=== PATIENT | male | born 1995 | race Two or more races ===

== ENCOUNTER 2021-06-04 19:23 | Emergency (ER) | payer SELFPAY ==
[2021-06-04 20:22] VITALS: BP 114/58; PULSE 72; RESP 16; TEMP 36.7; O2SAT 98; BMI 31.4
--- NOTE | 2021-06-04 22:09 | ED.HA ---
HPI - Headache General Chief Complaint: Headache Stated Complaint: headache Time Seen by Provider: 06/04/21 21:01 Source: patient Mode of arrival: ambulatory History of Present Illness HPI Narrative: 25-year-old male with no significant PMHx presenting to the ED complaining of intermittent temporal headache x2 days. Admits headache improves with Motrin at home. States sx began after eating [employer] 2 days ago and getting food poisoning with nausea/ vomiting for 24 hours, which is resolved at present. Denies fever, chills, ear pain, sore throat, vision change/loss, numbness, tingling, weakness, abdominal pain. CORRAL not maximal at onset MD elicited complaint: headache Onset (ago): day(s) Related Data Previous Rx's Medication Instructions Recorded [id number]-[id number]-xvutaavd 1 cap PO Q4-6H PRN #14 cap 06/04/21 50 mg-300 mg-40 mg capsule (Fioricet) Allergies Allergy/AdvReac Type Severity Reaction Status Date / Time No Known Allergies Allergy Verified 06/04/21 22:03 Review of Systems Review of Systems: Constitutional: No Fever, No Chills, No Fatigue, No Malaise ENT/Mouth: No Ear Pain, No Nasal Congestion, No sore throat, No Rhinorrhea Eyes: No Eye Pain, No Swelling, No Redness, No Vision Changes Cardiovascular: No Chest Pain, No SOB Respiratory: No Cough, No Dyspnea Gastrointestinal: + Nausea (resolved), + Vomiting (resolved), No Diarrhea, No Constipation, No Abdominal pain Genitourinary: No Dysuria, No Urinary Incontinence, No Flank Pain Musculoskeletal: No joint pain, No Myalgias Skin: No Skin Lesions, No rash Neuro: No Weakness, No Numbness, No Paresthesias, No Dizziness, +No Headache Yes all other systems are reviewed and are negative Neurologic: Denies Abnormal speech present FOR[facility] Past Medical History Attestation statement: The following information was validated with the patient. Social History Social History Advance Directives: No Advance Directives Information Provided: No Physical Exam Vital Signs: Vital Signs: Last Vital Signs Temp 98.1 F 06/04/21 20: Pulse 72 06/04/21 20:22 Resp 16 06/04/21 20:22 BP 114/58 L 06/04/21 20:22 Pulse Ox 98 06/04/21 20:22 BMI result Body Mass Index 31.4 Const: General: cooperative, healthy appearing, no acute distress and well developed; No acute distress Orientation/consciousness: patient oriented x3 Limitations: no limitations HENMT: Head: Yes normal to inspection and Yes atraumatic Ears: hearing grossly normal bilaterally, external ears normal, TM's normal bilaterally and mastoids normal General nose exam: Normal external nose present Face and sinus: Yes normal facial exam Mouth: Normal oral and palatal mucosa present Throat: Yes posterior oropharynx normal, Yes tonsils normal and Yes uvula midline Eyes: General: appearance normal, both eyes and all related structures Eyelids: Yes eyelids normal Conjunctivae: conjunctivae normal Sclerae: sclerae normal Corneas: corneas normal Pupils: Equal, round and reactive pupils present EOM: EOMs intact bilaterally Direct Ophthalmoscopy: normal light reflex and no photophobia Neck: Neck: Yes normal visual inspection, Yes no lymphadenopathy and Yes no meningeal signs Resp: Effort & Inspection: normal respiratory effort Auscultation: clear to auscultation bilaterally, no crackles, no rales and no rhonchi Cardio: Rate: regular rate Heart sounds: S1 normal heart sound present and S2 normal heart sound present GI: Inspection: Yes normal to inspection Palpation (GI): Soft to palpation, nontender, no guarding and not rigid : General: Yes no CVA tenderness Back/Spine/Pelvis: Back: no CVA tenderness Skin: Rashes: no rashes Wounds: no wounds Neuro: General: patient oriented x3, gait normal, Normal light touch and pain sensation, no meningeal signs, no focal motor deficits and CN's II-XI intact bilaterally Cranial nerves: Yes CN's II-XII intact bilaterally and Yes Equal, round and reactive pupils present Cognition (Neuro): normal cognition Speech: No Abnormal speech present Gait exam (Neuro): Normal gait present Motor exam (neuro): 5/5 motor strength present throughout and Pronator motor function not present Coordination: ojscze-hj-sggq test normal Romberg Test: Negative Extrem: General: Yes normal to inspection Course Course Course Narrative: -[id number]-- patient reports symptomatic improvement after Fioricet Will send script to pharmacy. Is to follow up with PCP MDM - Headache MDM Narrative Medical decision making narrative: 25-year-old male with no significant PMHx presenting to the ED complaining of intermittent temporal headache x2 days. Admits headache improves with Motrin at home. On exam vital signs stable, NAD/nontoxic appearing, no focal neuro deficits, abdomen soft/ nontender. Likely migraine/tension headache. Low concern for meningitis /encephalitis, CVT, or cervical dissection plan: Fioricet, strict return precautions Differential Diagnosis Differential diagnosis: Likely tension headache and headache Medical Records Attestation: I reviewed the patient's medical records. Lab Data Attestation: I reviewed the patient's lab results. Discharge Plan Discharge Clinical Impression: Headache Patient Disposition: Home, Self-Care Instructions: Acute Headache (DC) Additional Instructions: Fioricet is for headaches, take as needed. Make sure you stay hydrated at home. Take Motrin / ibuprofen in addition as needed at home for headaches. Be aware Fioricet as Tylenol mixed in, do not exceed 4 g in 1 day. If headache becomes persistent/unbearable, persistent nausea/ vomiting, you are unable to eat or drink please return to the ED Prescriptions: New xvchvevulp-duohryvxjflym-kbzy [Fioricet] 50-300-40 mg capsule 1 cap PO Q4-6H PRN (Reason: headache) Qty: 14 0RF Referrals: Physician,None [Primary Care Provider] - 2 days Stand Alone Forms: Work/School Release
[2021-06-04] MEDS: Butalb/Acetamin/Caff 50/325/40 TABLET 1 TAB PO (22:41)
== END 2021-06-04 23:52 | disposition home or self-care (01) ==
PROVIDERS: Emergency Provider Internal Medicine
DX: R51.9 Headache, unspecified (principal)
CPT/HCPCS: 99283; 99284

== ENCOUNTER → 2021-10-10 15:22 | Outpatient (BNVA) | payer OTHER, SELFPAY | PROVIDERS: Visit Provider Internal Medicine | DX: S93.401A Sprain of unspecified ligament of right ankle, initial encounter (principal); W10.2XXA Fall (on)(from) incline, initial encounter | CPT/HCPCS: 73610; 99203 ==

== ENCOUNTER → 2021-10-13 12:52 | Outpatient (BNVA) | payer OTHER, SELFPAY | PROVIDERS: Visit Provider Physician Assistant Medical | DX: S93.401A Sprain of unspecified ligament of right ankle, initial encounter (principal); W17.89XA Other fall from one level to another, initial encounter | CPT/HCPCS: 99213 ==

== ENCOUNTER → 2021-10-20 12:48 | Outpatient (BNVA) | payer OTHER, SELFPAY | PROVIDERS: Visit Provider Internal Medicine | DX: S93.401D Sprain of unspecified ligament of right ankle, subsequent encounter (principal); W10.2XXD Fall (on)(from) incline, subsequent encounter | CPT/HCPCS: 99213 ==

== ENCOUNTER → 2021-10-27 11:14 | Outpatient (BNVA) | payer OTHER, SELFPAY | PROVIDERS: Visit Provider Physician Assistant Medical | DX: S93.401D Sprain of unspecified ligament of right ankle, subsequent encounter (principal); W10.2XXD Fall (on)(from) incline, subsequent encounter | CPT/HCPCS: 99213 ==

== ENCOUNTER → 2021-11-04 10:34 | Outpatient (BNVA) | payer OTHER, SELFPAY | PROVIDERS: Visit Provider Physician Assistant | DX: S93.401A Sprain of unspecified ligament of right ankle, initial encounter (principal) | CPT/HCPCS: 99202 ==

== ENCOUNTER → 2021-12-31 15:34 | Outpatient (BNVA) | payer OTHER, SELFPAY | DX: S93.401D Sprain of unspecified ligament of right ankle, subsequent encounter (principal); W10.2XXD Fall (on)(from) incline, subsequent encounter | CPT/HCPCS: 99213 ==

== ENCOUNTER 2022-01-23 07:49 | Outpatient (REF) | payer OTHER, SELFPAY | END 2022-01-23 07:50 | disposition home or self-care (01) | LOC: HO.HOSX 07:49 | PROVIDERS: Visit Provider Physician Assistant | DX: Z13.89 Encounter for screening for other disorder (principal) ==